=== PATIENT | male | born 1940 | race Caucasian/White ===

== ENCOUNTER 2023-03-03 11:46 | Inpatient (IN) | payer MEDICARE, OTHER ==
[~2023-03-03] VITALS: Ht 180.3 cm; Wt 89.8 kg
[2023-03-03] MEDS ORDERED: FINA5TAB11 PO (12:35)
[2023-03-03] MEDS ORDERED: ATOR40TA PO (12:35)
[2023-03-03] MEDS ORDERED: DEXA5DRO4 EACHEYE (12:35)
[2023-03-03] MEDS ORDERED: AMLO-212 PO (12:35)
[2023-03-03] MEDS ORDERED: DONE5TAB34 PO (12:35)
[2023-03-03] MEDS ORDERED: APIX5TAB PO (12:35)
[2023-03-03] MEDS ORDERED: NITR0.4T48 SL (12:35)
[2023-03-03] MEDS ORDERED: TAMS-12 PO (12:35)
[2023-03-03] MEDS ORDERED: ASPI-1169 PO (12:35)
[2023-03-03 12:53] LABS: BASOPHILS # (AUTO) 0.1 K/uL (0.0-0.2); BASOPHILS % (AUTO) 0.6 % (0.0-2.0); EOSINOPHILS # (AUTO) 0.1 K/uL (0.0-0.7); EOSINOPHILS % (AUTO) 1.5 % (0.0-6.0); HEMATOCRIT 42 % (39-51); HEMOGLOBIN 13.9 g/dL (13.5-17.5); LYMPHOCYTES # (AUTO) 1.1 K/uL (0.8-4.8); LYMPHOCYTES % (AUTO) 12.9 % (20.0-44.0); MEAN CORPUSCULAR HEMOGLOBIN 31 PG (26.0-33.0); MEAN CORPUSCULAR HGB CONC 33 g/dl (31.0-36.0); MEAN CORPUSCULAR VOLUME 94 fL (80-96); MONOCYTES # (AUTO) 0.7 K/uL (0.1-1.30); MONOCYTES % (AUTO) 7.9 % (2.0-12.0); NEUTROPHILS # (AUTO) 6.9 K/uL (1.8-8.9); NEUTROPHILS % (AUTO) 77.1 % (43.0-81.0); PLATELET COUNT (AUTO) 244 K/uL (150-450); RED BLOOD CELL COUNT(AUTO) 4.42 MIL/uL (4.5-6.0); RED CELL DISTRIBUTION WIDTH 14.1 % (11.5-15.0); WHITE BLOOD COUNT (AUTO) 8.9 K/uL (4.3-11.0)
[2023-03-03 13:06] LABS: SERUM AMMONIA 4 umol/L (11-32)
[2023-03-03 13:11] LABS: ALANINE AMINOTRANSFERASE 28 U/L (12-78); ALBUMIN 3.9 g/dL (3.4-5.0); ALKALINE PHOSPHATASE 68 U/L (46-116); ASPARTATE AMINOTRANSFERASE 19 U/L (15-37); BILIRUBIN,DIRECT 0.1 mg/dL (0.0-0.2); BILIRUBIN,TOTAL 0.5 mg/dL (0.2-1.0); CALCIUM, SERUM 9.3 mg/dL (8.5-10.1); CARBON DIOXIDE 26 mmol/L (21-32); CHLORIDE 103 mmol/L (98-107); CREATININE 1.3 mg/dL (0.6-1.3); GLUCOSE 98 mg/dL (74-106); POTASSIUM 4.7 mmol/L (3.5-5.1); SODIUM SERUM 137 mmol/L (136-145); TOTAL PROTEIN, SERUM 7.4 g/dL (6.4-8.2); UREA NITROGEN, BLOOD 26 mg/dL (7-18)
[2023-03-03 13:15] LABS: APPEARANCE,URINE CLEAR (CLEAR); BILIRUBIN,URINE NEGATIVE (NEGATIVE); BLOOD, URINE NEGATIVE Ery/uL (NEGATIVE); COLOR,URINE YELLOW (YELLOW); KETONES,URINE NEGATIVE (NEGATIVE); LEUKOCYTE ESTERASE ,URINE NEGATIVE (NEGATIVE); NITRITE, URINE NEGATIVE (NEGATIVE); PH,URINE 5.5 (5.0-8.0); PROTEIN,URINE NEGATIVE (NEGATIVE); UGLUCOSE NEGATIVE (NEGATIVE); UROBILINOGEN,URINE 0.2 EU/dL (0.2)
[2023-03-03 13:25] LABS: INR 1.04 (0.91-1.10); PROTHROMBIN TIME 10.9 SECS (9.2-11.1)
[2023-03-03] MEDS ORDERED: ENOXAPARIN SODIUM 30 MG/0.3 ML DISP.SYRIN SQ SCH (15:00)
[2023-03-03] MEDS ORDERED: MAGNESIUM HYDROXIDE 30 ML UDC PO PRN (15:00)
[2023-03-03] MEDS ORDERED: IV NS 0.9% 1,000 ML IV PRN (15:00)
[2023-03-03] MEDS ORDERED: ACETAMINOPHEN 325 MG TABLET PO PRN (15:00)
[2023-03-03] MEDS ORDERED: ONDANSETRON HCL/PF 4 MG/2 ML VIAL IVP PRN (15:00)
[2023-03-03] MEDS ORDERED: MAG HYDROX/AL HYDROX/SIMETH 30 ML UDC PO PRN (15:00)
[2023-03-03] MEDS ORDERED: Z GUARD REMEDY 4 OZ OINT TP PRN (15:00)
[2023-03-03] MEDS ORDERED: NITROGLYCERIN 0.4 MG/TAB BOTTLE SL PRN (15:00)
[2023-03-03] MEDS: APIXABAN 5 MG TABLET PO SCH (16:34)
[2023-03-03 17:26] VITALS: BP 127/70; TEMP 98.8; O2SAT 98
[2023-03-03 21:44] VITALS: BP 124/72; TEMP 97.5; O2SAT 98
[2023-03-03] MEDS: TAMSULOSIN 0.4 MG CAP.SR.24H PO SCH (21:49)
[2023-03-03] MEDS: DONEPEZIL 5 MG TABLET PO SCH (21:49)
[2023-03-03] MEDS: ZOLPIDEM TARTRATE 5 MG TABLET PO PRN (21:59)
[2023-03-04 07:24] LABS: BASOPHILS # (AUTO) 0.1 K/uL (0.0-0.2); BASOPHILS % (AUTO) 0.6 % (0.0-2.0); EOSINOPHILS # (AUTO) 0.3 K/uL (0.0-0.7); EOSINOPHILS % (AUTO) 3.2 % (0.0-6.0); HEMATOCRIT 41 % (39-51); HEMOGLOBIN 13.7 g/dL (13.5-17.5); LYMPHOCYTES # (AUTO) 2.2 K/uL (0.8-4.8); LYMPHOCYTES % (AUTO) 24.6 % (20.0-44.0); MEAN CORPUSCULAR HEMOGLOBIN 31 PG (26.0-33.0); MEAN CORPUSCULAR HGB CONC 33 g/dl (31.0-36.0); MEAN CORPUSCULAR VOLUME 94 fL (80-96); MONOCYTES # (AUTO) 0.7 K/uL (0.1-1.30); MONOCYTES % (AUTO) 7.9 % (2.0-12.0); NEUTROPHILS # (AUTO) 5.7 K/uL (1.8-8.9); NEUTROPHILS % (AUTO) 63.7 % (43.0-81.0); PLATELET COUNT (AUTO) 254 K/uL (150-450); RED BLOOD CELL COUNT(AUTO) 4.38 MIL/uL (4.5-6.0); RED CELL DISTRIBUTION WIDTH 13.9 % (11.5-15.0); WHITE BLOOD COUNT (AUTO) 8.9 K/uL (4.3-11.0)
[2023-03-04 08:00] VITALS: BP 113/67; TEMP 98.8; O2SAT 98
[2023-03-04 08:08] LABS: CALCIUM, SERUM 9.1 mg/dL (8.5-10.1); CARBON DIOXIDE 26 mmol/L (21-32); CHLORIDE 105 mmol/L (98-107); CREATININE 1.2 mg/dL (0.6-1.3); GLUCOSE 89 mg/dL (74-106); MAGNESIUM 2.2 mg/dL (1.8-2.4); PHOSPHORUS 3.7 mg/dL (2.5-4.9); POTASSIUM 4.3 mmol/L (3.5-5.1); SODIUM SERUM 140 mmol/L (136-145); UREA NITROGEN, BLOOD 21 mg/dL (7-18)
[2023-03-04] MEDS: ASPIRIN 81 MG TAB.CHEW PO SCH (09:16)
[2023-03-04] MEDS: APIXABAN 5 MG TABLET PO SCH ×2 (09:17→16:57)
[2023-03-04] MEDS: ATORVASTATIN 40 MG TABLET PO SCH (09:17)
[2023-03-04] MEDS: AMLODIPINE BESYLATE 5 MG TABLET PO SCH (09:18)
[2023-03-04] MEDS: FINASTERIDE (5 MG) 5 MG TABLET PO SCH (09:18)
[2023-03-04 16:00] VITALS: BP 135/69; TEMP 97.5; O2SAT 98
[2023-03-04 20:00] VITALS: BP_SYST 124; BP_SYST 149; BP_DIAS 72; BP_DIAS 76; TEMP 97.5; O2SAT 98
[2023-03-04] MEDS: DONEPEZIL 5 MG TABLET PO SCH (22:54)
[2023-03-04] MEDS: TAMSULOSIN 0.4 MG CAP.SR.24H PO SCH (22:55)
[2023-03-04] MEDS: ZOLPIDEM TARTRATE 5 MG TABLET PO PRN (23:22)
[2023-03-05 08:00] VITALS: BP 97/49; TEMP 98.6; O2SAT 95
[2023-03-05] MEDS: AMLODIPINE BESYLATE 5 MG TABLET PO SCH (09:00)
[2023-03-05] MEDS: ASPIRIN 81 MG TAB.CHEW PO SCH (11:41)
[2023-03-05] MEDS: ATORVASTATIN 40 MG TABLET PO SCH (11:42)
[2023-03-05] MEDS: APIXABAN 5 MG TABLET PO SCH ×2 (11:42→18:49)
[2023-03-05] MEDS: FINASTERIDE (5 MG) 5 MG TABLET PO SCH (11:43)
[2023-03-05 16:00] VITALS: BP 123/60; TEMP 97.8; O2SAT 98
[2023-03-05 20:00] VITALS: BP 134/72; TEMP 97.7; O2SAT 97
[2023-03-05] MEDS: TAMSULOSIN 0.4 MG CAP.SR.24H PO SCH (21:22)
[2023-03-05] MEDS: DONEPEZIL 5 MG TABLET PO SCH (21:23)
[2023-03-06 07:30] VITALS: BP 118/84; TEMP 98.1; O2SAT 99
[2023-03-06] MEDS: ATORVASTATIN 40 MG TABLET PO SCH (09:39)
[2023-03-06] MEDS: FINASTERIDE (5 MG) 5 MG TABLET PO SCH (09:39)
[2023-03-06] MEDS: ASPIRIN 81 MG TAB.CHEW PO SCH (09:39)
[2023-03-06 09:40] VITALS: BP 118/84
[2023-03-06] MEDS: AMLODIPINE BESYLATE 5 MG TABLET PO SCH (09:40)
[2023-03-06] MEDS: APIXABAN 5 MG TABLET PO SCH (09:42)
== END 2023-03-06 13:45 | DRG 640 ==
LOC: ER 11:50 → MED 13:45
PROVIDERS: ADMIT Internal Medicine; ATTEND Internal Medicine
DX: E86.0 Dehydration (principal); E43 Unspecified severe protein-calorie malnutrition; G93.41 Metabolic encephalopathy; N17.0 Acute kidney failure with tubular necrosis; F03.90 Unspecified dementia, unspecified severity, without behavioral disturbance, psychotic disturbance, mood disturbance, and anxiety; I10 Essential (primary) hypertension; E78.5 Hyperlipidemia, unspecified; I48.0 Paroxysmal atrial fibrillation; N40.0 Benign prostatic hyperplasia without lower urinary tract symptoms; R62.7 Adult failure to thrive; Z79.01 Long term (current) use of anticoagulants; Z79.82 Long term (current) use of aspirin; Z88.0 Allergy status to penicillin; Z95.0 Presence of cardiac pacemaker; Z68.27 Body mass index [BMI] 27.0-27.9, adult
CPT/HCPCS: 36415; 70450-TC; 71045-TC; 80048-TC; 80076-TC; 82140-TC; 83735-TC; 84100-TC; 84484-TC; 85025-TC; 85730-TC; 87086-TC; G0378

== ENCOUNTER 2025-01-09 20:52 | Inpatient (IN) | payer MEDICARE, OTHER ==
[~2025-01-09] VITALS: Ht 182.9 cm; Wt 79.4 kg
[~2025-01-09 20:52] MED LIST: AMLO-212 PO; APIX5TAB PO; ASPI-1169 PO; ATOR40TA PO; DEXA5DRO4 EACHEYE; DONE5TAB34 PO; FINA5TAB11 PO; NITR0.4T48 SL; TAMS-12 PO
[2025-01-09 22:46] LABS: APPEARANCE,URINE CLEAR (CLEAR); BLOOD, URINE 3+ Ery/uL (NEGATIVE); LEUKOCYTE ESTERASE ,URINE NEGATIVE (NEGATIVE); NITRITE, URINE NEGATIVE (NEGATIVE); UGLUCOSE NEGATIVE (NEGATIVE)
[2025-01-09 23:00] LABS: ADD URINE CULTURE YES; SQUAMOUS EPITHELIAL CELL,UR Few /HPF (None Seen)
[2025-01-09 23:03] LABS: PLATELET COUNT (AUTO) 220 K/uL (150-450); RED BLOOD CELL COUNT(AUTO) 4.09 MIL/uL (4.5-6.0); RED CELL DISTRIBUTION WIDTH 14.8 % (11.5-15.0); WHITE BLOOD COUNT (AUTO) 8.9 K/uL (4.3-11.0)
[2025-01-09 23:11] LABS: CALCIUM, SERUM 9.1 mg/dL (8.5-10.1); CREATININE 1.0 mg/dL (0.6-1.3); SODIUM SERUM 137 mmol/L (136-145); UREA NITROGEN, BLOOD 26 mg/dL (7-18)
[2025-01-09 23:24] LABS: ASPARTATE AMINOTRANSFERASE 15 U/L (15-37); NT-PRO BNP 2224 pg/mL (0-125); TOTAL PROTEIN, SERUM 7.1 g/dL (6.4-8.2)
[2025-01-10 00:57] LABS: ALCOHOL, BLOOD < 3 mg/dL (0-10)
[2025-01-10] MEDS: LORAZEPAM INJ 2 MG/ML VIAL IM ONE (02:14)
[2025-01-10] MEDS: HALOPERIDOL LACTATE INJ 5 MG/ML VIAL IM ONE (02:15)
[2025-01-10] MEDS ORDERED: TEMAZEPAM 7.5 MG CAPSULE PO PRN ×2 (02:30)
[2025-01-10] MEDS ORDERED: LORAZEPAM 0.5 MG TABLET PO PRN (02:30)
[2025-01-10] MEDS ORDERED: MAG HYDROX/AL HYDROX/SIMETH 30 ML UDC PO PRN (02:30)
[2025-01-10] MEDS ORDERED: LORAZEPAM 1 MG TABLET PO PRN (02:30)
[2025-01-10] MEDS ORDERED: MAGNESIUM HYDROXIDE 30 ML UDC PO PRN (02:30)
[2025-01-10] MEDS: BLOOD SUGAR DIAGNOSTIC 1 EACH STRIP IN ONE (02:30)
[2025-01-10 03:00] VITALS: BP 132/52; TEMP 98.4; O2SAT 98
[2025-01-10 08:00] VITALS: BP 136/74; TEMP 97.8; O2SAT 98
[2025-01-10] MEDS: ATORVASTATIN 40 MG TABLET PO SCH (08:59)
[2025-01-10] MEDS: FINASTERIDE (5 MG) 5 MG TABLET PO SCH (08:59)
[2025-01-10] MEDS: AMLODIPINE BESYLATE 5 MG TABLET PO SCH (09:00)
[2025-01-10] MEDS: ASPIRIN 81 MG TAB.CHEW PO SCH (09:00)
[2025-01-10] MEDS: APIXABAN 5 MG TABLET PO SCH (09:33)
[2025-01-10 16:00] VITALS: BP 153/80; TEMP 97.9; O2SAT 98
[2025-01-10 20:13] VITALS: BP 114/52; TEMP 98.4; O2SAT 99
[2025-01-10] MEDS: OLANZAPINE 5 MG TABLET PO SCH (20:33)
[2025-01-10] MEDS: MIRTAZAPINE 15 MG TABLET PO SCH (22:08)
[2025-01-10] MEDS: DONEPEZIL 5 MG TABLET PO SCH (22:09)
[2025-01-10] MEDS: TAMSULOSIN 0.4 MG CAP.SR.24H PO SCH (22:09)
[2025-01-11 08:00] VITALS: BP 118/54; TEMP 98; O2SAT 97; O2SAT 98
[2025-01-11 16:00] VITALS: BP 126/63; TEMP 98; TEMP 98.1; O2SAT 97
[2025-01-11 18:43] LABS: ASPARTATE AMINOTRANSFERASE 15.0 U/L (15-37); CALCIUM, SERUM 9.0 mg/dL (8.5-10.1); CREATININE 1.1 mg/dL (0.6-1.3); SODIUM SERUM 139.0 mmol/L (136-145); TOTAL PROTEIN, SERUM 6.9 g/dL (6.4-8.2); UREA NITROGEN, BLOOD 21.0 mg/dL (7-18)
[2025-01-11 18:45] LABS: LDL 74 mg/dL (0-99)
[2025-01-11 21:35] VITALS: BP 102/54; TEMP 98.1; O2SAT 97
[2025-01-12 08:00] VITALS: BP 106/60; TEMP 98; O2SAT 97
[2025-01-12 16:00] VITALS: BP 93/67; TEMP 97.9; O2SAT 98
[2025-01-12] MEDS: ACETAMINOPHEN 325 MG TABLET PO PRN (16:30)
[2025-01-12 20:20] VITALS: BP 124/83; TEMP 98; O2SAT 98
[2025-01-13 08:00] VITALS: BP 127/50; TEMP 97.9; O2SAT 97
[2025-01-13 16:07] VITALS: BP 119/46; TEMP 99.3; O2SAT 96
[2025-01-13 20:37] VITALS: BP 128/52; TEMP 98.8; O2SAT 96
[2025-01-14 08:00] VITALS: BP 103/65; TEMP 98.2; O2SAT 97
[2025-01-14 16:00] VITALS: BP 122/55; TEMP 97.8; O2SAT 100
[2025-01-14 19:47] VITALS: BP 119/57; TEMP 98.2; O2SAT 96
[2025-01-15 08:00] VITALS: BP 140/64; TEMP 98.7; O2SAT 98
[2025-01-15 16:00] VITALS: BP 95/55; TEMP 98.1; O2SAT 97
[2025-01-15 19:51] VITALS: BP 110/62; TEMP 97.9; O2SAT 100
[2025-01-16 08:00] VITALS: BP 122/62; TEMP 97.8; O2SAT 99
[2025-01-16 16:00] VITALS: BP 105/54; TEMP 98.7; O2SAT 97
[2025-01-16 20:25] VITALS: BP 113/60; TEMP 98.4; O2SAT 97
[2025-01-17 08:00] VITALS: BP 113/57; TEMP 97.9; O2SAT 98
[2025-01-17 16:00] VITALS: BP 100/52; TEMP 98.2; O2SAT 97
[2025-01-17 20:00] VITALS: BP 122/65; TEMP 98; O2SAT 98
[2025-01-18 08:00] VITALS: BP 126/65; TEMP 98.4; O2SAT 97
[2025-01-18 17:00] VITALS: BP 121/59; TEMP 98.1; O2SAT 98
[2025-01-18 20:53] VITALS: BP 102/61; TEMP 97.8; O2SAT 98
[2025-01-19 08:00] VITALS: BP 100/56; TEMP 97.8; O2SAT 100
[2025-01-19 16:00] VITALS: BP 115/58; TEMP 98.4; O2SAT 97
[2025-01-19 20:31] VITALS: BP 114/57; TEMP 98.2; O2SAT 97
[2025-01-20 08:10] VITALS: BP 128/59; TEMP 97.7; O2SAT 98
[2025-01-20 17:39] VITALS: BP 100/53; TEMP 98.2; O2SAT 97
[2025-01-20 20:36] VITALS: BP 107/88; TEMP 98.1; O2SAT 96
[2025-01-21 08:00] VITALS: BP 107/55; TEMP 97.9; O2SAT 99
[2025-01-21 15:55] VITALS: BP 113/64; TEMP 97.7; O2SAT 98
[2025-01-21 20:02] VITALS: BP 97/66; TEMP 97.9; O2SAT 100
[2025-01-22 08:10] VITALS: BP 100/61; TEMP 97.6; O2SAT 98
[2025-01-22 16:05] VITALS: BP 115/54; TEMP 97.8; O2SAT 100
[2025-01-22 19:49] VITALS: BP 103/52; TEMP 98.4; O2SAT 100
[2025-01-23 08:00] VITALS: BP 119/68; TEMP 97.8; O2SAT 98
[2025-01-23 16:00] VITALS: BP 119/73; TEMP 98.6; O2SAT 98
[2025-01-23 19:45] VITALS: BP 112/61; TEMP 98.5; O2SAT 95
[2025-01-24 08:00] VITALS: BP 103/52; TEMP 97.8; O2SAT 98
[2025-01-24 09:00] VITALS: BP 106/57
== END 2025-01-24 13:00 | DRG 885 ==
LOC: ER 20:58 → GPS 01-10 01:52
PROVIDERS: ADMIT Psychiatry & Neurology Psychiatry; ATTEND Nurse Practitioner Acute Care
DX: F20.0 Paranoid schizophrenia (principal); I11.0 Hypertensive heart disease with heart failure; F03.94 Unspecified dementia, unspecified severity, with anxiety; G93.49 Other encephalopathy; I50.32 Chronic diastolic (congestive) heart failure; F41.9 Anxiety disorder, unspecified; E78.5 Hyperlipidemia, unspecified; Z86.718 Personal history of other venous thrombosis and embolism; Z95.0 Presence of cardiac pacemaker; Z95.1 Presence of aortocoronary bypass graft; Z73.6 Limitation of activities due to disability; F39 Unspecified mood [affective] disorder; I48.0 Paroxysmal atrial fibrillation; N40.0 Benign prostatic hyperplasia without lower urinary tract symptoms; Z20.822 Contact with and (suspected) exposure to COVID-19; I25.10 Atherosclerotic heart disease of native coronary artery without angina pectoris
CPT/HCPCS: 36415; 71045-TC; 80048-TC; 80053-TC; 80061-TC; 81001; 82962-TC; 83880; 84484-TC; 85025-TC; 87081-TC; 87086-TC; 97110-TC; 97112-TC; 97116-TC; 97530-TC; G0480